=== PATIENT | female | born 1970 | race Caucasian/White ===

== ENCOUNTER 2022-11-26 00:30 | Emergency (ER) | payer MEDICARE ==
[2022-11-26] MEDS ORDERED: Ipratropium/Albuterol 3 ML NEB ONE (00:51)
[2022-11-26] MEDS ORDERED: methylPREDNISolone Sod Succ/PF 125 MG/2 ML VIAL ONE (00:53)
[2022-11-26] MEDS ORDERED: Ondansetron ODT 4 MG TAB ONE (01:02)
== END 2022-11-26 01:17 | disposition home or self-care (01) ==
LOC: BURERS 00:30
DX: J44.9 Chronic obstructive pulmonary disease, unspecified (principal); J20.9 Acute bronchitis, unspecified; E11.9 Type 2 diabetes mellitus without complications; E78.5 Hyperlipidemia, unspecified; I10 Essential (primary) hypertension; F17.210 Nicotine dependence, cigarettes, uncomplicated
CPT/HCPCS: 71045; 87804; 96372; J2930; J7620; Q0162

== ENCOUNTER 2024-05-02 15:30 | Emergency (ER) | payer OTHER, MEDICAID | END 2024-05-02 16:04 | disposition home or self-care (01) | LOC: BURERS 15:30 | DX: H60.91 Unspecified otitis externa, right ear (principal); H66.92 Otitis media, unspecified, left ear; E11.9 Type 2 diabetes mellitus without complications; I10 Essential (primary) hypertension; J44.9 Chronic obstructive pulmonary disease, unspecified; F17.210 Nicotine dependence, cigarettes, uncomplicated | CPT/HCPCS: 99282 ==